=== PATIENT | female | born 1950 | race African-American/Black ===

== ENCOUNTER 2019-02-28 09:00 | Inpatient (IN) ==
[2019-02-27 12:04] LABS: INR 1.1; Partial Thromboplastin Time 27.6 SECS (0-40)
[2019-02-27 12:06] LABS: Calcium 9.2 MG/DL (8.5-10.1); Osmolality,Calculated 281.1 MOS/KG (273-304)
[2019-02-27 12:35] LABS: Basophils # 0.1 10*3/uL (0.0-0.2); Basophils % 0.9 % (0.0-0.8); Eosinophils # 0.2 10*3/uL (0.0-0.87); Eosinophils % 3.4 % (0.00-10.9); Hematocrit 35.4 VOL% (35.7-47.0); Immature Granulocytes % 0.2 %; Immature Granulocytes Absolute 0.01 #; Lymphocytes # 1.4 10*3/uL (1.4-4.0); Lymphocytes % 25.1 % (21.3-54.2); Mean Corpuscular HGB Conc 28.2 GM/DL (32-36); Mean Corpuscular Volume 68.5 FL (87-102); Monocytes % 9.3 % (1.7-12.7); Neutrophils % 61.1 % (38.7-73.9); Platelet Count 532 T/CUMM (130-400); Red Blood Count 5.17 MC/CUMM (3.8-5.5); Red Cell Distribution Width 29.4 % (9.3-17.3); White Blood Count 5.6 T/CUMM (4-12)
[2019-02-27 12:40] LABS: Hypochromasia 2+; Microcytosis 1+; Ovalocytes Slight; Platelet Estimate Increased
[2019-02-27 13:39] LABS: Apearance,Urine CLEAR (Clear); Bilirubin,Urine Negative (Negative); Blood, Urine Moderate mg/dL (Negative); Glucose,Urine (UA) Negative (Negative); Hyaline Casts,Urine 3 /LPF (0-3); Ketones,Urine Negative (Negative); Mucus,Urine Occasional /LPF (Occasional); Nitrite,Urine Negative (Negative); Protein,Urine 30 MG/DL; RBC,Urine 31 /HPF (0-4); Squamous Epithelial Cell,Urine Occasional /HPF (0-10); Urine Color Yellow (Yellow); Urine Specific Gravity 1.014 (1.001-1.035); Urine Urobilinogen < 2.0 EU/DL (0.2-1.0); WBC,Urine 3 /HPF (0-6)
[2019-03-07] MEDS ORDERED: ceFAZolin 1,000 MG in SYRINGE 1 EACH IV ONE (06:00)
[2019-03-07] MEDS ORDERED: ceFAZolin 1,000 MG VIAL ONE (06:43)
[2019-03-07] MEDS ORDERED: LACTATED RINGERS 1,000 ML IV SCH (07:00)
[2019-03-07] MEDS ORDERED: BUPIVACAINE 0.5% 50 ML VIAL ONE (07:39)
[2019-03-07] MEDS ORDERED: DEXAMETHASONE 4 MG/1 ML VIAL ONE ×2 (07:39→09:57)
[2019-03-07] MEDS ORDERED: EPINEPHrine 1 MG/ML VIAL ONE (07:39)
[2019-03-07] MEDS ORDERED: SODIUM CHLORIDE 0.9% 100 ML IV ONE (07:39)
[2019-03-07] MEDS ORDERED: METHYLENE BLUE 10 ML VIAL IV ONE (08:46)
[2019-03-07] MEDS ORDERED: ACETAMINOPHEN 325 MG TABLET PO PRN (09:19)
[2019-03-07] MEDS ORDERED: MAGNESIUM HYDROXIDE SUSP 30 ML UDCUP PO PRN (09:19)
[2019-03-07] MEDS ORDERED: ONDANSETRON 4 MG/2 ML VIAL IV PRN ×2 (09:19→10:12)
[2019-03-07] MEDS ORDERED: BENZOCAINE/MENTHOL LOZENGE 18/BOX PO PRN (09:19)
[2019-03-07] MEDS ORDERED: BISACODYL 10 MG SUPP RECTAL PRN (09:19)
[2019-03-07] MEDS ORDERED: PROPOFOL 200 MG/20 ML VIAL IV ONE (09:56)
[2019-03-07] MEDS ORDERED: fentaNYL 100 MCG/2 ML VIAL ONE (09:56)
[2019-03-07] MEDS ORDERED: SEVOFLURANE 1 UNIT/15 MINUTE INH ONE (09:56)
[2019-03-07] MEDS ORDERED: ePHEDrine 50 MG/ML AMP ONE (09:57)
[2019-03-07] MEDS ORDERED: MIDAZOLAM 2 MG/2 ML VIAL ONE (09:57)
[2019-03-07] MEDS ORDERED: ONDANSETRON 4 MG/2 ML VIAL ONE (09:57)
[2019-03-07] MEDS ORDERED: PHENYLEPHRINE 1 MG/10 ML SYRINGE IV ONE (09:57)
[2019-03-07] MEDS ORDERED: GLYCOPYRROLATE 0.4 MG/2 ML VIAL ONE (09:57)
[2019-03-07] MEDS ORDERED: SUCCINYLCHOLINE 200 MG/10 ML VIAL ONE (09:58)
[2019-03-07] MEDS ORDERED: LACTATED RINGERS 1,000 ML IV ONE (09:58)
[2019-03-07] MEDS ORDERED: ROCURONIUM 100 MG/10 ML VIAL IV ONE (09:58)
[2019-03-07] MEDS ORDERED: NEOSTIGMINE 10 MG/10 ML VIAL ONE (09:58)
[2019-03-07] MEDS: HYDROmorphone 2 MG/1 ML VIAL IV PRN ×5 (10:10→21:05)
[2019-03-07] MEDS ORDERED: HYDROmorphone 2 MG/1 ML VIAL ONE (10:13)
[2019-03-07] MEDS: ceFAZolin 1,000 MG in SYRINGE 1 EACH IV SCH (15:27)
[2019-03-07] MEDS: LACTATED RINGERS 1,000 ML IV SCH (18:30)
[2019-03-07] MEDS: INSULIN REGULAR 100 UNIT/ML SUBCUT SCH (21:04)
[2019-03-08] MEDS: ceFAZolin 1,000 MG in SYRINGE 1 EACH IV SCH (00:14)
[2019-03-08] MEDS: oxyCODONE/ACETAMINOPHEN 5-325 MG TABLET PO PRN ×2 (00:25→09:23)
[2019-03-08] MEDS: LACTATED RINGERS 1,000 ML IV SCH ×2 (02:18→09:32)
[2019-03-08] MEDS: HYDROmorphone 2 MG/1 ML VIAL IV PRN (03:49)
[2019-03-08] MEDS: ENOXAPARIN 40 MG/0.4 ML SYRINGE SUBCUT SCH (03:56)
[2019-03-08] MEDS: LEVOTHYROXINE 100 MCG TABLET PO SCH (06:02)
[2019-03-08 06:51] LABS: Basophils % 0.2 % (0.0-0.8); Eosinophils % 0.1 % (0.00-10.9); Hematocrit 29.5 VOL% (35.7-47.0); Hemoglobin 8.7 GM/DL (12.0-16.0); Immature Granulocytes % 0.4 %; Immature Granulocytes Absolute 0.05 #; Lymphocytes # 1.5 10*3/uL (1.4-4.0); Lymphocytes % 11.1 % (21.3-54.2); Mean Corpuscular HGB Conc 29.5 GM/DL (32-36); Mean Corpuscular Volume 67.4 FL (87-102); Monocytes % 10.2 % (1.7-12.7); Platelet Count 268 T/CUMM (130-400); Red Blood Count 4.38 MC/CUMM (3.8-5.5); Red Cell Distribution Width 27.7 % (9.3-17.3); White Blood Count 13.1 T/CUMM (4-12)
[2019-03-08] MEDS ORDERED: SIMVASTATIN 20 MG TABLET PO SCH (09:00)
[2019-03-08] MEDS ORDERED: SIMVASTATIN 40 MG TABLET PO SCH (09:07)
[2019-03-08] MEDS: metFORMIN 500 MG TABLET PO SCH (09:21)
[2019-03-08] MEDS: METOPROLOL TARTRATE 25 MG TABLET PO SCH ×2 (09:21→21:08)
[2019-03-08] MEDS: IBUPROFEN 800 MG TABLET PO PRN (09:21)
[2019-03-08] MEDS: DOCUSATE SODIUM 100 MG CAPSULE PO PRN ×2 (09:21→21:08)
[2019-03-08 09:27] LABS: Anisocytosis 2+; Hypochromasia 1+; Ovalocytes Few; Poikilocytosis 1+
[2019-03-08 09:28] LABS: Elliptocytes Few; Microcytosis 2+; Platelet Estimate Normal; Polychromasia Slight; Schistocytes Slight; Spherocytes Few; Target Cells Slight
[2019-03-08] MEDS: INSULIN REGULAR 100 UNIT/ML SUBCUT SCH ×2 (16:04→21:13)
[2019-03-09] MEDS: IBUPROFEN 800 MG TABLET PO PRN (00:03)
[2019-03-09] MEDS: ENOXAPARIN 40 MG/0.4 ML SYRINGE SUBCUT SCH (04:20)
[2019-03-09] MEDS: LEVOTHYROXINE 100 MCG TABLET PO SCH (06:24)
[2019-03-09 07:27] VITALS: BP 119/78
[2019-03-09] MEDS: metFORMIN 500 MG TABLET PO SCH (07:57)
[2019-03-09] MEDS: METOPROLOL TARTRATE 25 MG TABLET PO SCH (08:00)
[2019-03-09] MEDS: INSULIN REGULAR 100 UNIT/ML SUBCUT SCH (08:00)
[2019-03-09] MEDS: DOCUSATE SODIUM 100 MG CAPSULE PO PRN (09:38)
== END 2019-03-09 12:50 | disposition home or self-care (01) | DRG 743 ==
LOC: N.SDSINP 03-07 05:41 → N.OB 03-07 10:50
PROVIDERS: ADMIT Specialist; ATTEND Specialist

== ENCOUNTER 2020-04-01 16:54 | Observation (INO) ==
[2020-04-01 22:37] LABS: Basophils % 0.4 % (0.0-0.8); Eosinophils # 0.2 10*3/uL (0.0-0.87); Eosinophils % 3.1 % (0.00-10.9); Hematocrit 41.5 VOL% (35.7-47.0); Hemoglobin 12.5 GM/DL (12.0-16.0); Immature Granulocytes % 0.2 %; Immature Granulocytes Absolute 0.01 #; Lymphocytes # 1.6 10*3/uL (1.4-4.0); Lymphocytes % 31.4 % (21.3-54.2); Mean Corpuscular HGB Conc 30.1 GM/DL (32-36); Mean Corpuscular Volume 69.2 FL (87-102); Mean Platelet Volume 10.4 FL (9.6-12.0); Monocytes % 13.3 % (1.7-12.7); Neutrophils % 51.6 % (38.7-73.9); Platelet Count 256 T/CUMM (130-400); Red Cell Distribution Width 15.6 % (9.3-17.3); White Blood Count 5.1 T/CUMM (4-12)
[2020-04-01 22:49] LABS: INR 1.2; PT Patient Result 12.5 SECS (9.8-11.9); Partial Thromboplastin Time 32.2 SECS (23.9-33.8)
[2020-04-01 23:03] LABS: Calcium 9.8 MG/DL (8.5-10.1); Osmolality,Calculated 282.3 MOS/KG (273-304); Thyroid Stimulating Hormone 0.686 uIU/ml (0.358-3.74)
[2020-04-01] MEDS ORDERED: LABETALOL 20 MG/4 ML SYRINGE IV PRN (23:12)
[2020-04-01] MEDS ORDERED: GLUCAGON 1 MG VIAL IM PRN (23:12)
[2020-04-01] MEDS ORDERED: DEXTROSE 50% 25 GM/50 ML VIAL IV PRN (23:12)
[2020-04-01] MEDS ORDERED: ERYTHROMYCIN 0.5% OPHT OINT 1 GM TUBE ONE (23:57)
[2020-04-02] MEDS ORDERED: LABETALOL 20 MG/4 ML SYRINGE IV PRN (00:11)
[2020-04-02] MEDS: METOPROLOL TARTRATE 25 MG TABLET PO SCH ×3 (00:49→21:05)
[2020-04-02] MEDS: ROSUVASTATIN 10 MG TABLET PO SCH ×2 (01:31→21:05)
[2020-04-02] MEDS: LEVOTHYROXINE 100 MCG TABLET PO SCH (06:25)
[2020-04-02 07:41] LABS: Risk Ratio 3.43; VLDL CHOLESTEROL 17.4 MG/DL
[2020-04-02] MEDS: INSULIN REGULAR 100 UNIT/ML SUBCUT SCH ×4 (08:53→21:05)
[2020-04-02] MEDS: ASPIRIN EC 325 MG TABLET PO SCH (08:54)
[2020-04-02] MEDS: ENOXAPARIN 40 MG/0.4 ML SYRINGE SUBCUT SCH (08:54)
[2020-04-02] MEDS ORDERED: LORazepam 2 MG/1 ML VIAL IV ONE (12:17)
[2020-04-03] MEDS: LEVOTHYROXINE 100 MCG TABLET PO SCH (05:55)
[2020-04-03] MEDS: INSULIN REGULAR 100 UNIT/ML SUBCUT SCH (08:35)
[2020-04-03 08:46] VITALS: BP 143/93
[2020-04-03] MEDS: ASPIRIN EC 325 MG TABLET PO SCH (10:19)
[2020-04-03] MEDS: ENOXAPARIN 40 MG/0.4 ML SYRINGE SUBCUT SCH (10:19)
[2020-04-03] MEDS: METOPROLOL TARTRATE 25 MG TABLET PO SCH (10:19)
== END 2020-04-03 12:40 | disposition home or self-care (01) ==
LOC: N.ED 16:54 → N.EDINP 16:54 → N.3E 04-02 00:33
PROVIDERS: ADMIT Family Medicine; ATTEND Family Medicine